=== PATIENT | male | born 1960 | race Caucasian/White ===

== ENCOUNTER → 2019-08-18 | Outpatient (CLI) | payer OTHER ==
[~2019-08-18] MED LIST: ACCUNEB SO1.25 MG/1; ADVAIR HFA115 MCG/21 INH; AMITRIPTYLINE H25 M2 PO; CLARITIN10 MG; COZAAR 50 MG TA50 M2 PO; DEPO-TESTO200 MG/1 M IM; DOLOPHINE HCL10 MG; HYZAAR 100-12.1 EACH; METHADONE HCL 110 M1 PO; METHADONE HCL5 MG PO; NEURONTIN 300300 M1 PO; NEXIUM20 MG; NEXIUM40 MG PO; OXECTA7.5 MG PO; PERCOCET 10-321 EACH; PHENERGAN PO; POTASSIUM; PROVENTIL HFA6.7 G1; ROXICODONE15 M1 PO; SINGULAIR 10 MG10 M1 PO; VALIUM PO; VALIUM5 MG PO; XANAX 0.25 MG0.25 MG PO; XANAX 0.5 MG0.5 MG; XANAX 0.5 MG0.5 MG PO; XANAX1 MG PO; ZOLOFT 50 MG TA50 M1 PO; [UNRECOGNIZED DRUG - REMARK]
== END ==
LOC: M.RAD 17:03
PROVIDERS: ATTEND Internal Medicine
DX: S42.017A Nondisplaced fracture of sternal end of right clavicle, initial encounter for closed fracture (principal); M47.22 Other spondylosis with radiculopathy, cervical region; M48.02 Spinal stenosis, cervical region; G89.29 Other chronic pain; W19.XXXA Unspecified fall, initial encounter; Y93.89 Activity, other specified; Y92.89 Other specified places as the place of occurrence of the external cause; Y99.8 Other external cause status

== ENCOUNTER → 2019-10-17 | Outpatient (CLI) | payer OTHER ==
[~2019-10-17] MED LIST changes: -AMITRIPTYLINE H25 M2 PO; +AMITRIPTYLINE H75 M1 PO; -HYZAAR 100-12.1 EACH; +LIPITOR10 MG PO; +LOSARTAN-HCTZ1 EAC1 PO; +LYRICA200 MG PO; +METFORMIN HCL500 M3 PO; +VIAGRA100 MG PO; +XARELTO20 MG PO
== END ==
LOC: M.MRI 09-25 13:30
PROVIDERS: ATTEND Internal Medicine
DX: M50.13 Cervical disc disorder with radiculopathy, cervicothoracic region (principal); M48.02 Spinal stenosis, cervical region; M50.11 Cervical disc disorder with radiculopathy, high cervical region; M43.22 Fusion of spine, cervical region; M47.22 Other spondylosis with radiculopathy, cervical region; M25.78 Osteophyte, vertebrae; M50.90 Cervical disc disorder, unspecified, unspecified cervical region

== ENCOUNTER → 2019-10-20 | Outpatient (CLI) | payer OTHER | LOC: M.PC 08:43 | PROVIDERS: ATTEND Physical Medicine & Rehabilitation | DX: M50.30 Other cervical disc degeneration, unspecified cervical region (principal); M48.02 Spinal stenosis, cervical region; M47.812 Spondylosis without myelopathy or radiculopathy, cervical region; Z98.1 Arthrodesis status; Z87.39 Personal history of other diseases of the musculoskeletal system and connective tissue; M79.602 Pain in left arm ==